=== PATIENT | male | born 1975 | race African-American/Black ===

== ENCOUNTER 2016-09-10 07:07 | Emergency (ER) | payer MEDICAID ==
[~2016-09-10] VITALS: Ht 180.3 cm; Wt 81.6 kg
[~2016-09-10 07:07] MED LIST: LATUDA20 MG PO; MIRTAZAPINE15 M3 ORAL; SEROQUEL100 MG ORAL; XANAX0.5 MG ORAL
[2016-09-10 07:16] VITALS: BP 142/92
[2016-09-10] MEDS ORDERED: NKM (07:20)
[2016-09-10] MEDS ORDERED: PENICILLIN V P500 MG ORAL (07:52)
[2016-09-10] MEDS ORDERED: PERIDEX15 ML MM (07:52)
[2016-09-10] MEDS ORDERED: NORCO 5-325 TA1 EACH ORAL (07:52)
[2016-09-10] MEDS ORDERED: IBUPROFEN600 MG ORAL (07:52)
[2016-09-10] MEDS ORDERED: Norco 5mg/325mg tab ORAL ONE (08:00)
[2016-09-10 08:03] VITALS: BP 132/74
--- NOTE | 2016-09-10 08:11 | Emergency Room Report ---
History of Present Illness General Chief Complaint: Toothache Source: Patient Present Illness HPI Patient presents emergency department today complaining of right lower first molar dental pain. Patient states that he cracked a tooth about 2 weeks ago. It has become inflamed and painful over last 24 hours. He denies any difficulty swallowing denies any discharge denies any fever chest pain shortness of breath. He states that he has a dental appointment but cannot wait until that time. Symptoms noted to be severe. No other modifying factors. No other associated signs and symptoms. No other complaints were noted. Allergies: Coded Allergies: NO KNOWN ALLERGIES (Unverified Allergy, Unknown, 11/20/14) Patient History Past Medical History: none Past Surgical History: none Pertinent Family History: none Social History: Denies: alcohol use, drug use, smoking Reviewed Nursing Documentation: PMH: Agreed, PSxH: Agreed Nursing Documentation-PMH Past Medical History: No Stated History Review of Systems All Other Systems: negative except mentioned in HPI Physical Exam Vital Signs Date Time Temp Pulse Resp B/P Pulse Ox O2 Delivery O2 Flow Rate FiO2 09/10/16 07:16 98.2 81 18 142/92 96 Room Air Sp02 EP Interpretation: reviewed, normal General Appearance: normal inspection, well appearing, no apparent distress, alert Head: atraumatic Eyes: bilateral eye normal inspection ENT: hearing grossly normal, normal voice, other - Right lower jaw dental fracture with evidence of dental caries. No abscess noted. Neck: normal inspection, full range of motion, supple, no bony tend Respiratory: normal inspection, lungs clear, normal breath sounds, no respiratory distress, no retraction, no wheezing Cardiovascular #1: regular rate, rhythm, no edema Gastrointestinal: normal inspection, normal bowel sounds, non tender, soft, no guarding, no hernia Genitourinary: no CVA tenderness Musculoskeletal: normal inspection, back normal, normal range of motion Neurologic: normal inspection, alert, responsive, speech normal Psychiatric: normal inspection, judgement/insight normal, mood/affect normal Skin: normal inspection, normal color, no rash Medical Decision Making Diagnostic Impression: Primary Impression: Dental caries Additional Impression: Toothache ER Course Patient presents emergency department today complaining of dental pain. Differential considerations include abscess, dental cellulitis, submandibular abscess, dental caries just to name a few. Patient's exam is consistent with dental caries and likely early dental abscess. I felt the patient would benefit from antibiotics. Patient was given a prescription for penicillin and Peridex and pain medications. Advised to follow with dental clinic as scheduled.Patient is advised to follow up with primary doctor in 2-3 days and return the emergency room for any worsening symptoms and as needed. Last Vital Signs Date Time Temp Pulse Resp B/P Pulse Ox O2 Delivery O2 Flow Rate FiO2 09/10/16 08:03 78 16 132/74 100 Room Air 09/10/16 07:16 98.2 Status: improved Disposition: HOME, SELF-CARE Condition: Stable Scripts Penicillin V Potassium* (PENVK*) 500 Mg Tablet 500 MG ORAL TWICE A DAY, #14 TAB Prov: GOPAL CHAVIS M.D. 09/10/16 Chlorhexidine Gluconate (Peridex) 15 Ml Mouthwash 15 ML MM BID for 14 Days, ML Prov: GOPAL CHAVIS M.D. 09/10/16 Ibuprofen* (MOTRIN*) 600 Mg Tablet 600 MG ORAL Q8H Y for For Pain, #30 TAB 0 Refills Prov: GOPAL CHAVIS M.D. 09/10/16 Hydrocodone Bit/Acetaminophen 5-325* (NORCO 5-325*) 1 Each Tablet 1 TAB ORAL Q6H Y for For Pain, #30 TAB 0 Refills Prov: GOPAL CHAVIS M.D. 09/10/16 Patient Instructions: Dental Pain GOPAL CHAVIS M.D. Sep 10, 2016 08:11
== END 2016-09-10 08:07 | disposition home or self-care (01) ==
LOC: EMR 07:43
DX: K02.9 Dental caries, unspecified (principal)
CPT/HCPCS: 99284

== ENCOUNTER 2016-10-15 03:20 | Emergency (ER) | payer MEDICAID ==
[~2016-10-15] VITALS: Ht 180.3 cm; Wt 78.0 kg
[~2016-10-15 03:20] MED LIST changes: +IBUPROFEN600 MG ORAL; +NKM; +NORCO 5-325 TA1 EACH ORAL; +PENICILLIN V P500 MG ORAL; +PERIDEX15 ML MM
[2016-10-15] MEDS ORDERED: IBUPROFEN600 MG ORAL (03:42)
[2016-10-15] MEDS ORDERED: PENICILLIN V P500 MG ORAL (03:42)
[2016-10-15] MEDS ORDERED: Ketorolac 60mg Inj IM ONE (03:45)
[2016-10-15] MEDS ORDERED: Lidocaine 2% Visc 15ml soln ORAL ONE (03:45)
[2016-10-15 04:07] VITALS: BP 134/74
--- NOTE | 2016-10-15 05:03 | Emergency Room Report ---
History of Present Illness General Chief Complaint: Toothache Source: Patient Present Illness [facility] This is a 41-year-old male who presented after increased toothache to the right lower molar. The patient been since emergency department one month previously for dental pain as well. The patient had prior history of fractures. And gingivitis. The patient reported having increased throbbing pain to his jaw. The patient had not been having any swelling. Not had any recent fever. He had not been taking antibiotics. Allergies: Coded Allergies: NO KNOWN ALLERGIES (Unverified Allergy, Unknown, 11/20/14) Patient History Past Medical History: see triage record Reviewed Nursing Documentation: PMH: Agreed, PSxH: Agreed Nursing Documentation-PMH Past Medical History: No Stated History Review of Systems All Other Systems: negative except mentioned in HPI Physical Exam Vital Signs Date Time Temp Pulse Resp B/P Pulse Ox O2 Delivery O2 Flow Rate FiO2 10/15/16 03:29 98.4 79 19 148/78 96 Room Air General Appearance: well appearing, no apparent distress, alert, GCS 15 Head: normocephalic, atraumatic ENT: hearing grossly normal, normal voice, other - multiple cracked teeth, no fluctuance or swelling. Neck: full range of motion, supple Respiratory: chest non-tender, lungs clear, no respiratory distress, speaking full sentences Cardiovascular #1: no edema Gastrointestinal: normal inspection Musculoskeletal: normal inspection Neurologic: normal inspection, alert, oriented x3, responsive, audio visual design engineer III-XII nml as tested, normal gait Psychiatric: mood/affect normal Skin: normal inspection, no rash Medical Decision Making Diagnostic Impression: Primary Impression: Dental caries Additional Impression: Need for dental care ER Course Differential diagnosis included but was not limited to trigeminal neuralgia, dental abscess, dry socket, gingivitis, osteomyelitis, nerve injury. The patient was noted to have a benign exam. Patient was given IM Toradol for pain. The patient was also given topical local anesthetic. The patient is advised to follow up with dentist.Patient is advised to use dental wax to prevent pain from nerve root The patient does not appear to have any evidence of abscess at this time however given the patient's poor dentition he was started on penicillin antibiotic Last Vital Signs Date Time Temp Pulse Resp B/P Pulse Ox O2 Delivery O2 Flow Rate FiO2 10/15/16 04:07 98.4 88 19 134/74 96 Room Air Status: unchanged Disposition: HOME, SELF-CARE Condition: Stable Scripts Penicillin V Potassium* (PENVK*) 500 Mg Tablet 500 MG ORAL TWICE A DAY, #14 TAB Prov: Tevin Snyder 10/15/16 Ibuprofen* (MOTRIN*) 600 Mg Tablet 600 MG ORAL Q8H Y for For Pain, #30 TAB 0 Refills Prov: Tevin Snyder 10/15/16 Referrals: [facility],REFERRING (PCP) Patient Instructions: Dental Pain Tevin Snyder Oct 15, 2016 05:03
== END 2016-10-15 04:05 | disposition home or self-care (01) ==
LOC: EMR 03:55
DX: K02.9 Dental caries, unspecified (principal)
CPT/HCPCS: 96372; 99284

== ENCOUNTER 2019-06-18 11:43 | Emergency (ER) | payer MEDICAID ==
[~2019-06-18] VITALS: Ht 177.8 cm; Wt 77.1 kg
[2019-06-18 12:04] VITALS: BP 126/79
--- NOTE | 2019-06-18 12:07 | NUR ---
ED Nurse Note: pt walked in to ER from home due to chest pain / x 4 days. pt aao x4 and ambulatory. per pt, chest pain present on Lt side of chest but does not radiates and it is aching. no cardiac or pulmonary distress noted. 12 lead sinus rythm noted and reported to ERMD. skin clean and intact. calm and cooperative.
--- NOTE | 2019-06-18 12:34 | NUR ---
ED Nurse Note: blood sent to lab. pt unable to urinate at this time. he will try soon.
[2019-06-18 12:37] LABS: BASOPHILS % (AUTO) 1.1 % (0.0-2.0); EOSINOPHILS % (AUTO) 7.3 % (0.0-3.0); HEMATOCRIT 43.7 % (42.0-52.0); HEMOGLOBIN 14.4 G/DL (14.2-18.0); LYMPHOCYTES % (AUTO) 34.7 % (20.0-45.0); MEAN CORPUSCULAR VOLUME 87 FL (80-99); MONOCYTES % (AUTO) 7.9 % (1.0-10.0); NEUTROPHILS % (AUTO) 48.9 % (45.0-75.0); PLATELET COUNT 201 K/UL (150-450); RED BLOOD COUNT 4.99 M/UL (4.70-6.10); RED CELL DISTRIBUTION WIDTH 12.6 % (11.6-14.8); WHITE BLOOD COUNT 6.9 K/UL (4.8-10.8)
--- NOTE | 2019-06-18 12:40 | NUR ---
ED Nurse Note: pt ambulated to bathroom in steady gait. urine sent to lab.
--- NOTE | 2019-06-18 13:09 | NUR ---
HAND-OFF: Report given to KO Carlin. no orders to carry for now.
[2019-06-18 13:27] LABS: APPEARANCE,URINE SLIGHTLY CLOUDY; BILIRUBIN, URINE NEGATIVE (NEGATIVE); GLUCOSE, URINE (UA) NEGATIVE (NEGATIVE); KETONES,URINE NEGATIVE (NEGATIVE); NITRITE,URINE NEGATIVE (NEGATIVE); PH,URINE 6 (4.5-8.0); PROTEIN,URINE NEGATIVE (NEGATIVE); UROBILINOGEN,URINE NORMAL MG/DL (0.0-1.0)
[2019-06-18 13:32] LABS: ANION GAP 7 mmol/L (5-15); BLOOD UREA NITROGEN 12 mg/dL (7-18); CALCIUM 8.7 MG/DL (8.5-10.1); CARBON DIOXIDE 28 MMOL/L (21-32); CHLORIDE 105 MMOL/L (98-107); CREATININE 0.9 MG/DL (0.55-1.30); POTASSIUM 4.2 MMOL/L (3.5-5.1); SODIUM 140 MMOL/L (136-145)
[2019-06-18 13:41] LABS: ALANINE AMINOTRANSFERASE 29 U/L (12-78); ALBUMIN 3.8 G/DL (3.4-5.0); ALBUMIN/GLOBULIN RATIO 1.1 (1.0-2.7); ALKALINE PHOSPHATASE 68 U/L (46-116); ASPARTATE AMINO TRANSFERASE 21 U/L (15-37); BILIRUBIN,TOTAL 0.2 MG/DL (0.2-1.0)
[2019-06-18 14:00] LABS: COLOR,URINE YELLOW; LEUKOCYTE ESTERASE ,URINE TRACE (NEGATIVE)
--- NOTE | 2019-06-18 14:00 | Emergency Room Report ---
History of Present Illness General Chief Complaint: Chest Pain Source: Patient (Rhianna Mattson) Present Illness HPI 43-year-old male with no significant past medical history who reports that he smokes marijuana on daily basis here complaining of 5 days of 7 out of 10 chest pain that started at rest. Denies any pain radiation at this time. Denies shortness of breath, cough or congestion. Denies fever and chills, abdominal pain, nausea vomiting diarrhea. Denies tobacco smoke, alcohol intake. Reports that the pain is worse after eating. Reports that he is a lot of spicy acidic food. Complains of acid reflux. Denies any trauma to the chest. He has been taking Tylenol at home with minimal relief. Patient is neurovascularly intact. No unilateral generalized weakness noted. (Rhianna Mattson) Allergies: Coded Allergies: NO KNOWN ALLERGIES (Unverified Allergy, Unknown, 11/20/14) COVID-19 Screening Contact w/high risk pt: No Recent Travel to affected area: No Experienced COVID-19 symptoms?: No (Rhianna Mattson) Patient History Past Medical History: see triage record Pertinent Family History: none Immunizations: UTD Reviewed Nursing Documentation: PMH: Agreed; PSxH: Agreed (Rhianna Mattson) Nursing Documentation-PMH Past Medical History: No Stated History (Rhianna Mattson) Review of Systems All Other Systems: negative except mentioned in HPI (Rhianna Mattson) Physical Exam Vital Signs Date Time Temp Pulse Resp B/P (MAP) Pulse Ox O2 Delivery O2 Flow Rate FiO2 06/18/19 12:01 97.0 72 14 126/79 (95) 98 Room Air Sp02 EP Interpretation: reviewed, normal General Appearance: no apparent distress, alert, GCS 15, non-toxic Head: normocephalic, atraumatic Eyes: bilateral eye normal inspection, bilateral eye PERRL ENT: hearing grossly normal, normal pharynx, no angioedema, normal voice Neck: full range of motion, supple/symm/no masses Respiratory: chest non-tender, lungs clear, normal breath sounds, no rhonchi, no retraction, no wheezing, speaking full sentences Cardiovascular #1: regular rate, rhythm, no edema, no murmur, normal capillary refill Gastrointestinal: non tender, soft Rectal: deferred Genitourinary: no CVA tenderness Musculoskeletal: back normal Neurologic: alert, motor strength/tone normal, oriented x3, sensory intact, responsive, speech normal Psychiatric: judgement/insight normal, memory normal, mood/affect normal, no suicidal/homicidal ideation Skin: no rash Lymphatic: no adenopathy (Rhianna Mattson) Medical Decision Making PA Attestation All diagnoses and treatment plans were reviewed and discussed with my supervising physician Dr. Duenas (Rhianna Mattson) Diagnostic Impression: Primary Impression: Chest pain, unspecified ER Course 43-year-old male with no significant past medical history who reports that he smokes marijuana on daily basis here complaining of 5 days of 7 out of 10 chest pain that started at rest. Denies any pain radiation at this time. Denies shortness of breath, cough or congestion. Denies fever and chills, abdominal pain, nausea vomiting diarrhea. Denies tobacco smoke, alcohol intake. Reports that the pain is worse after eating. Reports that he is a lot of spicy acidic food. Complains of acid reflux. Denies any trauma to the chest. He has been taking Tylenol at home with minimal relief. Patient is neurovascularly intact. No unilateral generalized weakness noted. Ddx considered but are not limited to: [place], Angina, COPD, GERD, Vital signs: are WNL, pt. is afebrile H&PE are most consistent with unspecified chest pain ORDERS: EKG, Chest XR, CBC, CMP, troponin, UA, tox screen, omeprazole, Tylenol ED INTERVENTIONS: None required at this time. DISCHARGE: At this time pt. is stable for d/c to home. Will provide printed patient care instructions, and any necessary prescriptions. Care plan and follow up instructions have been discussed with the patient prior to discharge. Take medication as directed, follow-up primary care doctor, have primary doctor study to alarm signal operator, if worsening symptoms return to the emergency room. Take medication as directed, follow-up with your primary doctor, you need to stay home for self quarantine due to Covid 19 precautions for 14 days (Rhianna Mattson) EKG Diagnostic Results Rate: normal Rhythm: NSR ST Segments: no acute changes Other Impression No acute ST changes (Rhianna Mattson) Chest X-Ray Diagnostic Results Chest X-Ray Diagnostic Results : Chest X-Ray Ordered: Yes # of Views/Limited/Complete: 1 View Indication: Chest Pain EP Interpretation: Yes PA Xray: Interpretation reviewed, and agrees with findings. Interpretation: no consolidation, no effusion, no pneumothorax Impression: No acute disease Electronically Signed by: Rhianna Sheffield PA-C (Rhianna Mattson) Chest X-Ray Diagnostic Results : Electronically Signed by: Shannan Villafana documentation of Xray reviewed by me and is accurate, Jarod Duenas MD (Jarod Duenas MD) Last Vital Signs Date Time Temp Pulse Resp B/P (MAP) Pulse Ox O2 Delivery O2 Flow Rate FiO2 06/18/19 12:04 72 14 Room Air 06/18/19 12:04 97.0 126/79 98 (Rhianna Mattson) Disposition: HOME, SELF-CARE Condition: Stable Scripts Omeprazole (OMEPRAZOLE) 20 Mg Tablet.dr 20 MG ORAL DAILY, #30 TAB Prov: Rhianna Mattson 06/18/19 Acetaminophen* (TYLENOL EXTRA STRENGTH*) 500 Mg Tablet 500 MG ORAL Q8H PRN for Prn Headache/Temp > 101, #30 TAB 0 Refills Prov: Rhianna Mattson 06/18/19 Referrals: NOT [facility]OSEN [facility]/,REFERRING (PCP) Patient Instructions: Nonspecific Chest Pain, Heartburn Additional Instructions: Take medication as directed, follow-up with your primary doctor, you need to stay home for self quarantine due to Covid 19 precautions for 14 days. Follow- up with your primary care doctor for referral to alarm signal operator. If worsening symptoms return to the emergency room Rhianna Mattson Jun 18, 2019 14:00 Jarod Duenas MD Jun 18, 2019 23:15
[2019-06-18] MEDS ORDERED: TYLENOL EXTRA500 MG ORAL (14:01)
[2019-06-18] MEDS ORDERED: OMEPRAZOLE20 M3 ORAL (14:01)
[2019-06-18 14:27] VITALS: BP 126/79
--- NOTE | 2019-06-18 14:28 | NUR ---
ED Nurse Note: Pt cleared by health care Provider for discharge. DC instructions/prescription was given and explained to pt and verbalized understanding of teachings. All medical deviecs such as ID band removed. Pt is AAO x4, ambulatory and left with all personal belongings.
--- NOTE | 2019-06-19 10:28 | Diagnostic Imaging Report ---
Indication: Chest pain Technique: One view of the chest Comparison: 10/20/2015 Findings: The lungs and pleural spaces are clear. The heart size is normal. There is an azygos lobe and fissure are again demonstrated. No significant Impression: No acute process Azygos lobe and fissure are incidentally noted
== END 2019-06-18 14:29 | disposition home or self-care (01) ==
LOC: EMR 12:18
DX: R07.9 Chest pain, unspecified (principal); F12.90 Cannabis use, unspecified, uncomplicated; K21.9 Gastro-esophageal reflux disease without esophagitis
CPT/HCPCS: 36415; 71045; 80053; 80307; 81003; 83880; 84484; 85025; Z7502; 99283